=== PATIENT | male | born 1965 | race Caucasian/White ===

== ENCOUNTER → 2017-04-06 | Outpatient (REF) | payer OTHER | LOC: M LAB REF 15:46 | PROVIDERS: ATTEND Orthopaedic Surgery | DX: R22.31 Localized swelling, mass and lump, right upper limb (principal) ==

== ENCOUNTER → 2019-03-21 | Outpatient (CLI) | payer MEDICARE, OTHER ==
--- NOTE | 2019-04-03 09:29 | REP ---
Clinical: Dyspnea. Technique: Axial noncontrast images from the thoracic inlet to the upper abdomen with coronal and sagittal re-formations. Comparison: Chest x-ray dated 12/22/2018 Findings: Bilateral lung mackay are well-aerated and essentially clear. No acute pulmonary parenchymal consolidation, significant nodule, or mass lesion is appreciated. No pleural effusion. No pneumothorax. Tracheobronchial tree is patent. No significant axillary, hilar, or mediastinal adenopathy. Mediastinum demonstrates normal thoracic aorta, pulmonary vasculature and heart/pericardium. Atherosclerotic changes of the coronary arteries noted. Surrounding musculoskeletal structures are intact. Limited upper abdomen demonstrates normal bilateral adrenal glands. Impression: Normal noncontrast chest CT. No acute mediastinal or pleuroparenchymal process appreciated. Atherosclerotic changes to the coronary arteries. Electronically Signed by Mario Solis MD 04/03/2019 09:20 A
== END ==
LOC: M RAD 15:02
PROVIDERS: ATTEND Internal Medicine Pulmonary Disease
DX: Z87.09 Personal history of other diseases of the respiratory system (principal)

== ENCOUNTER 2019-12-06 13:17 | Emergency (ER) | payer MEDICARE ==
[~2019-12-06] VITALS: Ht 177.8 cm; Wt 110.3 kg
[2019-12-06] MEDS ORDERED: QVAR80AE8 (13:30)
[2019-12-06] MEDS ORDERED: ESCI10TA2 (13:30)
[2019-12-06] MEDS ORDERED: TIZA4TAB4 (13:30)
[2019-12-06] MEDS ORDERED: ATOR80TA59 (13:30)
[2019-12-06] MEDS ORDERED: AMLO5TAB6 (13:30)
[2019-12-06] MEDS ORDERED: METF500T13 (13:30)
[2019-12-06] MEDS ORDERED: VENTAER (13:30)
[2019-12-06] MEDS ORDERED: MELO7.5T35 (13:30)
[2019-12-06] MEDS ORDERED: MONT10TA2 (13:30)
[2019-12-06] MEDS ORDERED: LISI40TA (13:30)
[2019-12-06 13:44] LABS: BASO # 0.1 10^3/uL (0.0-0.2); BASO % 0.8 % (0.0-1.0); EOS # 0.3 10^3/uL (0.0-0.5); EOS % 2.4 % (0.0-3.0); HEMATOCRIT 42.6 % (42.0-52.0); HEMOGLOBIN 14.1 g/dl (13.5-17.5); LYMPH # 4.2 10^3/uL (1.5-5.0); LYMPH % 39.7 % (24.0-44.0); MEAN CORPUSCULAR HGB CONC 33.1 g/dl (32.0-36.5); MEAN CORPUSCULAR VOLUME 96.6 fl (80.0-96.0); MONO # 1.1 10^3/uL (0.0-0.8); MONO % 10.3 % (0.0-5.0); NEUTROPHILS # 4.9 10^3/uL (1.5-8.5); NEUTROPHILS % 46.4 % (36.0-66.0); PLATELET COUNT, AUTOMATED 313 10^3/uL (150-450); RED BLOOD COUNT 4.41 10^6/uL (4.30-6.10); WHITE BLOOD COUNT 10.5 10^3/uL (4.0-10.0)
--- NOTE | 2019-12-06 13:51 | REP ---
Portable chest, 01:37 p.m., single AP view with the patient sitting: Comparison is 12/22/2018. The lung mackay are clear. The cardiac size is normal. The louisa, mediastinum, and skeletal structures are unremarkable. Impression: Negative portable chest. There is no interval change. Electronically Signed by Kristian Meyers MD 12/06/2019 01:43 P
[2019-12-06 13:57] LABS: INR 1.04; PROTHROMBIN TIME 13.3 SECONDS (11.8-14.0)
[2019-12-06 14:23] LABS: ALT/SGPT 55 U/L (12-78); BILIRUBIN,DIRECT 0.1 MG/DL (0.0-0.2); BILIRUBIN,TOTAL 0.5 MG/DL (0.2-1.0); BLOOD UREA NITROGEN 12 MG/DL (7-18); CARBON DIOXIDE LEVEL 26 MEQ/L (21-32); CHLORIDE LEVEL 109 MEQ/L (98-107); CPK CREATINE PHOSPHOKINASE 123 U/L (39-308); CREATININE FOR GFR 1.04 MG/DL (0.70-1.30); GLOMERULAR FILTRATION RATE > 60.0 (>56); GLUCOSE, FASTING 99 MG/DL (70-100); LIPASE 82 U/L (73-393); MB/CK RELATIVE INDEX 0.81 (< OR =4); NT-PRO BNP 11 PG/ML (<125); POTASSIUM SERUM 3.5 MEQ/L (3.5-5.1); SODIUM LEVEL 142 MEQ/L (136-145); TOTAL PROTEIN 7.4 GM/DL (6.4-8.2); TROPONIN I < 0.02 NG/ML (< 0.10)
[2019-12-06] MEDS ORDERED: ISOVUE-370 76% 100ML VIAL (Q9967) As Ordered ONE (14:37)
--- NOTE | 2019-12-06 15:15 | REP ---
CT of the chest with IV contrast, CT pulmonary angiography: Comparison is the CT of the chest without IV contrast dated 03/21/2019. There are no emboli in the pulmonary trunk or central pulmonary arteries. There are no emboli in the pulmonary lobe or segment branches. There are no infiltrates or pleural effusions. There are no lung masses or nodules. There is no mediastinal, hilar or axillary adenopathy. The thoracic aorta is unremarkable. Cardiac size is normal. There is no pericardial effusion. The visualized upper abdominal contents are unremarkable. Impression: There are no pulmonary emboli. There are no infiltrates or effusions. Otherwise, negative CT study of the chest. Electronically Signed by Kristian Meyers MD 12/06/2019 03:06 P
[2019-12-06] MEDS ORDERED: PEPC1TAB5 PO (18:30)
[2019-12-06] MEDS ORDERED: SUCR1SS PO (18:31)
[2019-12-06 20:14] LABS: CK-MB VALUE MASS < 1.0 NG/ML (<3.6); CPK CREATINE PHOSPHOKINASE 96 U/L (39-308); MB/CK RELATIVE INDEX 1.04 (< OR =4); TROPONIN I < 0.02 NG/ML (< 0.10)
[2019-12-06 20:45] VITALS: BP 130/77
--- NOTE | 2019-12-08 13:01 | ECGEPIP ---
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
--- NOTE | 2019-12-08 13:12 | ECGEPIP ---
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
== END 2019-12-06 20:50 | disposition home or self-care (01) ==
LOC: M ED 13:17
DX: R07.89 Other chest pain (principal); E11.9 Type 2 diabetes mellitus without complications; I10 Essential (primary) hypertension; E78.5 Hyperlipidemia, unspecified; J67.9 Hypersensitivity pneumonitis due to unspecified organic dust; Z79.84 Long term (current) use of oral hypoglycemic drugs; Z79.899 Other long term (current) drug therapy
CPT/HCPCS: 71045; 71275; 80047; 80048; 80076; 82550; 82553; 83690; 83880; 84443; 84484; 85025; 85610; 93005; 93041; 94760; 99285; Q9967

== ENCOUNTER → 2025-10-26 | Outpatient (CLI) | payer MEDICARE, MEDICAID ==
[~2025-10-26] MED LIST: AMLO1TAB24; ATOR80TA59; ESCI10TA16; LISI40TA10; MELO7.5T35; METF500T13; MONT10TA97; PEPC1TAB5 PO; QVAR80AE8; SUCR1SS PO; TIZA10TA; VENTAER
== END ==
LOC: M PLAIMG 08:58
PROVIDERS: ATTEND Internal Medicine Pulmonary Disease
DX: J67.8 Hypersensitivity pneumonitis due to other organic dusts (principal)